=== PATIENT | female | born 1995 | race African-American/Black ===

== ENCOUNTER 2016-10-04 23:10 | Emergency (ER) | payer MEDICAID ==
[2016-10-04] MEDS ORDERED: PRENATAL-U CAPS1 CAP PO (23:43)
[2016-10-05 02:07] LABS: URINE BILIRUBIN NEGATIVE (NEG); URINE BLOOD MODERATE (NEG); URINE GLUCOSE (UA) NEGATIVE (NEG); URINE KETONE NEGATIVE (NEG); URINE LEUKOCYTE ESTERASE NEGATIVE (NEG); URINE NITRITE NEGATIVE (NEG); URINE PROTEIN NEGATIVE (NEG); URINE SPECIFIC GRAVITY 1.015 (1.003-1.030)
[2016-10-05 02:11] LABS: URINE APPEARANCE CLEAR; URINE COLOR YELLOW
[2016-10-05 02:13] LABS: URINE EPITHELIAL CELLS 0-2 /[HPF] (0-10); URINE RBC 0-2 /[HPF] (0-5); URINE WBC 0-1 /[HPF] (0-5)
== END 2016-10-05 02:41 ==
LOC: EDMED 23:10
PROVIDERS: Emergency Medicine
DX: O20.0 Threatened abortion (principal); O69.89X0 Labor and delivery complicated by other cord complications, not applicable or unspecified; O99.511 Diseases of the respiratory system complicating pregnancy, first trimester; J45.909 Unspecified asthma, uncomplicated; Z3A.08 8 weeks gestation of pregnancy; Z87.891 Personal history of nicotine dependence